=== PATIENT | female | born 1995 | race Caucasian/White ===

== ENCOUNTER 2017-10-31 21:15 | Emergency (ER) | payer SELFPAY ==
[~2017-10-31] VITALS: Wt 62.1 kg
[2017-10-31] MEDS ORDERED: AUGMENTIN 875875 MG PO (22:36)
== END 2017-10-31 22:37 | disposition home or self-care (01) ==
LOC: ED 21:15
DX: S61.051A Open bite of right thumb without damage to nail, initial encounter (principal); S61.256A Open bite of right little finger without damage to nail, initial encounter; W54.0XXA Bitten by dog, initial encounter; Y93.89 Activity, other specified; Y92.89 Other specified places as the place of occurrence of the external cause; Y99.8 Other external cause status